=== PATIENT | female | born 1945 | race Caucasian/White ===

== ENCOUNTER → 2021-03-30 17:00 | Outpatient (CLI) | payer MEDICARE, SELFPAY ==
[2021-03-30 17:41] LABS: Chloride 99 mmol/L (98-107); Potassium 4.6 mmoL/L (3.5-5.1); Sodium 139 mmol/L (136-145)
[2021-03-30 17:42] LABS: Basophils # 0.1 K/mm3 (0-0.2); Eosinophils # 0.2 K/mm3 (0.0-0.4); Eosinophils % 2.5 % (0.1-12.0); Hematocrit 42.6 % (37.0-47.0); Hemoglobin 13.7 g/dL (12.2-16.2); Lymphocytes # 2.6 K/mm3 (0.7-4.5); Mean Corpuscular HGB Conc 32.1 g/dL (31.8-35.4); Mean Corpuscular Hemoglobin 31.7 pg (27.0-31.2); Mean Corpuscular Volume 98.8 fl (81-99); Mean Platelet Volume 10.2 fl (7.4-10.4); Monocytes # 0.4 K/mm3 (0.1-1.0); Monocytes % 5.3 % (1.7-9.3); Neutrophils # 3.8 K/mm3 (1.8-7.8); Neutrophils % 54.2 % (37.0-80.0); Platelet Count 366 K/mm3 (142-424); Red Blood Count 4.31 M/mm3 (4.20-5.40); Red Cell Distribution Width 12.8 % (11.5-17.5); White Blood Count 7.1 K/mm3 (4.8-10.8)
[2021-03-30 17:43] LABS: Alanine Aminotransferase 16 U/L (12-78); Aspartate Amino Transferase 28 U/L (14-36); Blood Urea Nitrogen 14 mg/dl (7-17); Estimated Glomerular Filt Rate 82 ml/min (>60); GFR (African American) 99 ML/MIN (>60)
[2021-03-30 17:44] LABS: Albumin Level 4.3 g/dl (3.5-5.0); Albumin/Globulin Ratio 1.6 (1.1-1.8); Alkaline Phosphatase 80 U/L (38-126); Anion Gap 13.6 mEq/L (5-15); Bilirubin,Total 0.2 mg/dl (0.2-1.3); Calcium 9.7 mg/dl (8.4-10.2); Carbon Dioxide 31 mmol/L (22.0-30.0); Chol/HDL Ratio 3.6 (1-3.5); Cholesterol 222 mg/dl (140-200); Globulin 2.7 g/dL (1.3-3.2); Glucose 102 mg/dl (74-100); HDL Cholesterol 61 mg/dl (40-60); Triglycerides 69 mg/dl (30-150); VLDL Cholesterol 14 mg/dL (0-40)
[2021-03-30 17:56] LABS: Direct LDL Cholesterol 131.97 mg/dL (100-129)
[2021-03-30 18:03] LABS: 25-OH Vitamin D, Total 89.4 ng/mL (30-100)
[2021-03-30 18:17] LABS: Thyroid Stimulating Hormone 2.38 uIU/mL (0.465-4.68)
[2021-03-30 19:22] LABS: Vitamin B12 806 pg/mL (239-931)
== END ==
PROVIDERS: Visit Provider Family Medicine
DX: Z00.00 Encounter for general adult medical examination without abnormal findings (principal); F41.9 Anxiety disorder, unspecified; M15.4 Erosive (osteo)arthritis; Z90.710 Acquired absence of both cervix and uterus; I10 Essential (primary) hypertension
CPT/HCPCS: 80053; 80061; 82306; 82607; 84443; 85025

== ENCOUNTER → 2023-01-16 23:00 | Outpatient (CLI) | payer MEDICARE, SELFPAY ==
--- OUTSIDE RECORDS SUMMARY | 2023-01-17 00:02 | XMS_ITS | Continuity of Care Document ---
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 Name Role Phone John Guerrier MD Unavailable Unavailable Allergies, Adverse Reactions, Alerts Substance Reaction Status Criticality nisoldipine Altered Heart Rate(severe) Active N o Information prednisolone Rash(severe)Rash(severe) Active No Information Medications Medication Instructions Dosage Effective Dates (start - stop) Status Comments valsartan 80 mg tablet take 1 tablet by oral route every day 80 MG - Active hydrochlorothiazide 25 mg tablet take 1 tablet by oral route every day 25 MG - Active Kapspargo Sprinkle 25 mg capsule,extended release take 1 capsule by oral route every day 25 MG - Active Lexapro 10 mg tablet take 1 tablet by oral route every day 10 MG - Active loratadine 10 mg disintegrating tablet take 1 tablet by oral route every day and place on top of the tongue where it will dissolve, then swallow 10 MG - Active lorazepam 1 mg tablet take 1 tablet by oral route 2 times every day as needed 1 MG - Active Multi Vitamin Unknown ORAL TABLET Take one capsule by mouth daily - Active
== END ==
PROVIDERS: PCP Family Medicine; Visit Provider Family Medicine
DX: D22.5 Melanocytic nevi of trunk (principal)

== ENCOUNTER 2024-04-22 15:41 | Outpatient (CLI) | payer MEDICARE, SELFPAY ==
[2024-04-22 18:36] LABS: Basophils # 0.1 K/mm3 (0-0.2); Basophils % 0.6 % (0.1-2.0); Eosinophils # 0.2 K/mm3 (0.0-0.4); Eosinophils % 2.3 % (0.1-12.0); Hematocrit 40.5 % (37.0-47.0); Hemoglobin 13.7 g/dL (12.2-16.2); Lymphocytes # 2.5 K/mm3 (0.7-4.5); Lymphocytes % 30.6 % (10-50); Mean Corpuscular HGB Conc 33.8 g/dL (31.8-35.4); Mean Corpuscular Hemoglobin 32.4 pg (27.0-31.2); Mean Corpuscular Volume 95.7 fl (81-99); Mean Platelet Volume 11.4 fl (7.4-10.4); Monocytes # 0.7 K/mm3 (0.1-1.0); Monocytes % 8.9 % (1.7-9.3); Neutrophils # 4.7 K/mm3 (1.8-7.8); Neutrophils % 57.4 % (37.0-80.0); Platelet Count 276 K/mm3 (142-424); Red Blood Count 4.23 M/mm3 (4.20-5.40); Red Cell Distribution Width 12.2 % (11.5-17.5); White Blood Count 8.2 K/mm3 (4.8-10.8)
[2024-04-22 19:31] LABS: Albumin Level 4.6 g/dl (3.5-5.0); Chloride 98 mmol/L (98-107); Sodium 135 mmol/L (136-145)
[2024-04-22 19:32] LABS: Potassium 4.5 mmoL/L (3.5-5.1)
[2024-04-22 19:34] LABS: Alanine Aminotransferase 17 U/L (12-78); Albumin/Globulin Ratio 2.6 (1.1-1.8); Alkaline Phosphatase 83 U/L (38-126); Anion Gap 11.5 mEq/L (5-15); Aspartate Amino Transferase 24 U/L (14-36); Bilirubin,Total 0.4 mg/dl (0.2-1.3); Blood Urea Nitrogen 16 mg/dl (7-17); Carbon Dioxide 30 mmol/L (22.0-30.0); Cholesterol 213 mg/dl (140-200); Estimated Glomerular Filt Rate 69 ml/min (>60); GFR (African American) 84 ML/MIN (>60); Globulin 1.8 g/dL (1.3-3.2); Total Protein,Serum 6.4 g/dl (6.3-8.2); Triglycerides 73 mg/dl (30-150); VLDL Cholesterol 15 mg/dL (0-40)
[2024-04-22 19:35] LABS: Calcium 9.2 mg/dl (8.4-10.2); Chol/HDL Ratio 3.4 (1-3.5); Glucose 103 mg/dl (74-100); HDL Cholesterol 62 mg/dl (40-60)
[2024-04-22 19:46] LABS: Direct LDL Cholesterol 124.51 mg/dL (100-129)
[2024-04-22 20:04] LABS: Thyroid Stimulating Hormone 2.63 uIU/mL (0.465-4.68)
== END 2024-04-22 23:59 | disposition home or self-care (01) ==
LOC: LAB.DROPOF 04-23 13:31
PROVIDERS: PCP Family Medicine; Visit Provider Family Medicine
DX: I10 Essential (primary) hypertension (principal); Z90.710 Acquired absence of both cervix and uterus; F41.9 Anxiety disorder, unspecified; M15.4 Erosive (osteo)arthritis; T14.8XXA Other injury of unspecified body region, initial encounter; Z76.0 Encounter for issue of repeat prescription
CPT/HCPCS: 80053; 80061; 84443; 85025